=== PATIENT | male | born 1985 | race Caucasian/White ===

== ENCOUNTER 2017-03-27 17:43 | Emergency (ER) | payer OTHER, MEDICAID ==
--- NOTE | 2017-03-27 18:33 | ED Physician Chart ---
Chief Complaint/HPI - Patient Information Date Seen:: 03/27/17 Time Seen:: 17:50 Chief Complaint:: L earache for 3 days History of Present Illness:: L earache for 3 days, precipitated and aggravated with pulling outer L ear. No fever. No N/V/D. No hearing loss or tinnitus. Pt denies any use of analgesic today. Pt denies any recent swimming or watersport. However, he has been wearing earplugs during warm weather for prolonged period recently. Allergies:: Allergies Allergy/AdvReac Type Severity Reaction Status Date / Time No Known Allergies Allergy Verified 03/27/17 17:57 Vitals:: Vital Signs - 8 hr 03/27/17 17:58 Temp 97.4 F HR 71 RR 16 BP 127/89 O2 Sat % 100 Historian:: Patient Family MD/PCP:: [facility]. LMP:: N/A Review:: Nurse's Note Reviewed Review of Systems - Review of Systems General/Constitutional: No fever, No chills, No weakness, No edema, No loss of appetite Skin: No skin lesions, No rash, No bruising Head: No headache, No light-headedness Eyes: No loss of vision, No pain, No diplopia ENT: Earache (see HPI.), No nasal drainage, No sore throat Neck: No neck pain, No stiffness Cardio Vascular: No chest pain, No edema Pulmonary: No SOB, No cough GI: No nausea, No vomiting, No diarrhea, No pain G/U: No dysuria, No frequency, No hematuria Musculoskeletal: No bone or joint pain, No back pain, No muscle pain Endocrine: No polyuria, No polydipsia Psychiatric: No prior psych history Hematopoietic: No bruising, No lymphadenopathy Allergic/Immuno: No urticaria, No angioedema Neurological: No syncope, No focal symptoms, No weakness, No paresthesia, No headache, No dizziness, No confusion, No vertigo Past Medical History - Past Medical History Past Medical History: No significant medical hx Family History: Diabetes Melitus (father) Social History: Non Smoker, No Alcohol, No Drug Use, , Employed, Other ( lives with his .) Employment:: machine inspection Surgical History: None Psychiatricy History: None Medication: Reviewed Family Medical History - Family Member Mother History Unknown: Yes Physical Exam - Physical Examination General/Constitutional: Awake, Well-developed, well-nourished, Alert, No distress, GCS 15, Non-toxic appearing, Ambulatory Other Gen/Cons comments:: Breathes comfortably, speaks clearly, and ambulates without difficulty. Head: Atraumatic Eyes: Lids, conjuctiva normal, PERRL, EOMI Skin: Nl inspection, Well hydrated, No lymphadenopathy ENMT: Nasal exam nl, Lips, teeth, gums nl, Oropharynx nl, Tonsils nl Other ENMT comments:: R ear is normal. L ear: erythema with swelling noticed in L external auditory canal. No exudate. TM is not well visualized due to swelling in external auditory canal. Neck: Nontender, Full ROM w/o pain, No nuchal rigidity, No mass, No stridor Respiratory: Nl effort/Exclusion, Clear to Auscultation, No Wheeze/Rhonchi/Rales Cardio Vascular: RRR, No murmur, gallop, rubs GI: No tenderness/rebounding/guarding, No organomegaly, No hernia, Normal BS's, Nondistended, No mass/bruits Extremities: No tenderness or effusion, Full ROM, normal strength in all extremities, No edema Neuro/Psych: Alert/oriented (oriented x 3), Judgement/insight normal, Mood normal, Normal gait, No focal deficits ED Septic Shock - . Is Septic Shock (SBP<90, OR Lactate>4 mmol\L) present?: No - <6hrs of presentation: Vital Signs: Vital Signs - 8 hr 03/27/17 17:58 Temp 97.4 F HR 71 RR 16 BP 127/89 O2 Sat % 100 Reassessment (Disposition) - Reassessment Reassessment:: 1905 Pt feels much better. L earache essentially has resolved. Pt requests to go home now. Aftercare instructions have been given. Reassessment Condition:: Improved - Diagnosis Diagnosis:: L otitis externa, stable. - Aftercare/Follow up Instructions Aftercare/Follow-Up Instructions:: Refer to Discharge Instructions Notes:: May take Motrin and/or Tylenol as directed as needed for pain, not to take first dose of Motrin at least 6 hours after Toradol was given here. Avoid swimming or watersport until further physician direction. Avoid water entering into ears. Avoid wearing earplugs. F/U with PCP at [facility] in 1-2 days for recheck. Return to ER immediately if condition worsens or if any further questions/problems. Medication Prescribed:: Cortisporin otic suspension. Instill 4 gtts into L ear q8h as directed. D-one bottle R-0 - Patient Disposition Discharge/Transfer:: Home Time:: 19:25 Condition at Disposition:: Stable, Improved ED Discharge Plan - Patient Disposition Admit/Discharge/Transfer: PT DISCHARGED HOME Instructions: Otitis Externa, [id number] Additional Instructions: FILL YOUR PRESCRIPTION AND TAKE IT DIRECTED. CONTROL ANY PAIN WITH OVER THE COUNTER TYLENOL OR MOTRIN. FOLLOW UP WITH YOUR REGULAR DOCTOR TOMORROW. Forms: Work Release Form
== END 2017-03-27 19:30 | disposition home or self-care (01) ==
LOC: ER 17:43
DX: H60.92 Unspecified otitis externa, left ear (principal)
CPT/HCPCS: 99283; 96372; J1885; Z7502